=== PATIENT | male | born 1975 | race Caucasian/White ===

== ENCOUNTER 2024-08-19 04:56 | Emergency (ER) | payer SELFPAY ==
[~2024-08-19] VITALS: Ht 170.2 cm; Wt 88.0 kg
[2024-08-19 05:00] VITALS: O2SAT 98
[2024-08-19] MEDS: KETOROLAC 15MG/ML VIAL IV ONE (05:37)
[2024-08-19] MEDS: ONDANSETRON HCL 4MG/2ML INJ IV ONE (05:38)
[2024-08-19] MEDS: LACTATED RINGERS 1,000 ML IV SCH (05:38)
[2024-08-19 05:39] LABS: BASOPHILS % 0.3 % (0.0-2.0); EOSINOPHILS % 1.6 % (0.0-5.0); HEMATOCRIT. 44.8 % (42.0-52.0); HEMOGLOBIN. 15.5 g/dL (14.0-18.0); LYMPHOCYTES % 31.7 % (20.0-50.0); MEAN CORPUSCULAR HEMOGLOBIN 31.7 pg (28.0-32.0); MEAN CORPUSCULAR HGB CONC 34.7 g/dL (31.0-37.0); MEAN CORPUSCULAR VOLUME 91.5 fL (80.0-94.0); MEAN PLATELET VOLUME 7.4 fl (7.4-10.4); MONOCYTES % 6.8 % (2.0-8.0); NEUTROPHILS % 59.6 % (40.0-76.0); PLATELET 269 x1000/uL (130-400)
[2024-08-19 05:48] LABS: CHLORIDE 104 mEq/L (98-107); POTASSIUM 3.4 mEq/L (3.5-5.1); SODIUM 139 mEq/L (136-145)
[2024-08-19 05:49] LABS: CALCIUM 9.6 mg/dL (8.7-10.4); CARBON DIOXIDE 23 mEq/L (21-32)
[2024-08-19 05:54] LABS: GLUCOSE 151 mg/dL (70-105); UREA NITROGEN BLOOD 14 mg/dL (9-23)
[2024-08-19 05:56] LABS: ALANINE AMINOTRANSFERASE 27 IU/L (10-49); ALBUMIN 4.2 g/dL (3.2-4.8); ASPARTATE AMINOTRANSFERASE 25 IU/L (<34); BILIRUBIN DIRECT 0.4 mg/dL (<=3.0); BILIRUBIN TOTAL 1.3 mg/dL (0.1-1.0); PROTEIN TOTAL 7.2 g/dL (6.0-8.3)
[2024-08-19] MEDS ORDERED: KETO10TA2 MT (07:45)
[2024-08-19] MEDS ORDERED: ONDA-239 PO (07:45)
[2024-08-19 09:14] LABS: CLARITY URINE CLEAR (CLEAR); COLOR URINE YELLOW (YELLOW); GLUCOSE URINE NEGATIVE (NEGATIVE); KETONES URINE NEGATIVE (NEGATIVE); LEUKOCYTE ESTERASE URINE NEGATIVE (NEGATIVE); NITRITE URINE NEGATIVE (NEGATIVE); OCCULT BLOOD URINE 3+ (NEGATIVE); PROTEIN URINE TRACE (NEGATIVE); SPECIFIC GRAVITY URINE 1.019 (1.005-1.030)
[2024-08-19 09:45] VITALS: BP 104/60; PULSE 64; RESP 18; TEMP 36.6; O2SAT 98
[2024-08-19 10:25] LABS: BACTERIA URINE NONE SEEN; MUCUS URINE 1+ /lpf (NONE/TRACE); SQUAMOUS EPITHELIAL CELL URINE RARE /lpf (RARE/1+); WBC URINE 0-2 /hpf (0-2); YEAST URINE NONE SEEN
== END 2024-08-19 09:46 | disposition home or self-care (01) ==
LOC: ER 05:26
DX: N13.2 Hydronephrosis with renal and ureteral calculous obstruction (principal); Z79.899 Other long term (current) drug therapy
CPT/HCPCS: 99285; 74176; 96374; 96361; 96375; 80076; 80048; 81003; 83690; 85025; 36415; J1885; J2405